=== PATIENT | male | born 1990 | race Hispanic/Latino ===

== ENCOUNTER 2019-02-14 00:18 | Emergency (ER) | payer SELFPAY ==
[~2019-02-14] VITALS: Ht 157.5 cm; Wt 64.0 kg
[2019-02-14] MEDS ORDERED: AUGMENTIN500TAB PO (01:46)
[2019-02-14 02:05] VITALS: BP 128/80
== END 2019-02-14 02:05 | disposition home or self-care (01) | DRG 605 ==
LOC: ED 00:18
DX: S90.572A Other superficial bite of ankle, left ankle, initial encounter (principal); W54.0XXA Bitten by dog, initial encounter; Y93.55 Activity, bike riding; Y92.410 Unspecified street and highway as the place of occurrence of the external cause